=== PATIENT | female | born 1960 | race Caucasian/White ===

== ENCOUNTER 2016-06-20 16:28 | Emergency (ER) | payer OTHER ==
[~2016-06-20] VITALS: Wt 118.0 kg
[~2016-06-20 16:28] MED LIST: ACET500C5 PO; ALBU8.5H3 INH; AZIT250T94 PO; BENZ1LOZ52 MM; CEPH-443 PO; GUAI473L22 PO; IBUP-1542 PO; NAPR500T8 PO; OSLT75C PO
[2016-06-20] MEDS ORDERED: ACETAMINOPHEN 325 MG TAB PO ONE (18:00)
--- NOTE | 2016-06-20 18:19 | ERD ---
ER Documentation Chief Complaint Date/Time DATE: 06/20/16 TIME: 18:16 Chief Complaint HEADPAIN AND BACKPAIN FOR THE PAST FEW MONTHS. R EYE INTERMITTENT BLURRY HPI Patient is a 56-year-old female who presents to the ED with multiple complaints. She states that she has had headaches, neck pain and shoulder pain for the last 3-4 months. She states that she occasionally gets blurry vision. She denies dizziness or weakness. She denies trauma or triggering factor. She has not taken any medications for her symptoms. She also complains of left foot pain. She states that for the last 5 months she occasionally gets numbness and tingling on the left side of her foot. She currently does not have any symptoms in her feet. She denies any swelling, erythema or trauma. She is able to walk. Denies weakness. However she states that occasionally she gets these symptoms in her foot. Denies cough, chest pain or shortness of breath. Denies leg pain or swelling. ROS All systems reviewed and are negative except as per history of present illness. Medications Home Meds Active Scripts Acetaminophen/Aspirin/Caffeine* (Excedrin*) 1 Tab Tab, 1 TAB PO BID for 14 Days , TAB Prov:OJ JUNG PA-C 06/20/16 Gabapentin* (Gabapentin*) 100 Mg Capsule, 100 MG PO TID, #90 CAP Prov:OJ JUNG PA-C 06/20/16 Cephalexin* (Keflex*) 500 Mg Capsule, 500 MG PO QID for 5 Days, CAP Prov:NATO MUNOZ PA-C 10/19/15 Acetaminophen* (Tylophen*) 500 Mg Capsule, 1 CAP PO Q6H Y for PAIN AND OR ELEVATED TEMP, #20 CAP Prov:NATO MUNOZ PA-C 10/19/15 Guaifenesin-Codeine Phosphate* (Guaifenesin* AC Cough Syrup) 473 Ml Liquid, 10 ML PO QHS Y for COUGH, #120 ML Prov:COLE CALLAHAN PA-C 07/30/15 Albuterol Sulfate* (Proair HFA*) 8.5 Gm Hfa.aer.ad, 2 PUFF INH Q4, #1 INHALER Prov:COLE CALLAHAN PA-C 07/30/15 Benzocaine/Menthol* (Cepacol* Sore Throat Lozenges) 1 Each Lozenge, 1 EACH MM q2h Y for SORE THROAT, #30 LOZENGE Prov:COLE CALLAHAN DAVE 07/30/15 Acetaminophen* (Tylophen*) 500 Mg Capsule, 1 CAP PO Q6H Y for PAIN AND OR ELEVATED TEMP, #20 CAP Prov:LONDONCOLE ACOSTA 07/30/15 Ibuprofen* (Motrin*) 600 Mg Tab, 600 MG PO Q6, #30 TAB Prov:LONDONCOLE ACOSTA 07/30/15 Oseltamivir Phosphate* (Tamiflu*) 75 Mg Capsule, 75 MG PO BID for 5 Days, CAP Prov:LONDONCOLE ACOSTA 07/30/15 Ibuprofen* (Motrin*) 600 Mg Tab, 600 MG PO Q6, #30 TAB Prov:ETHEL JACOBS 05/17/15 Azithromycin* (Zithromax*) 250 Mg Tablet, 250 MG PO .IraPACK DIRECTED, #6 TAB TAKE 500 MG (2 TABS) THE FIRST DAY THEN 250 MG (1 TAB) DAYS 2-5 Prov:ETHEL JACOBS 05/17/15 Reported Medications Naproxen* (Naproxen EC*) 500 Mg Tablet.dr, 500 MG PO DAILY Y for PAIN, TAB 03/24/14 Allergies Allergies: Coded Allergies: No Known Allergy (Unverified , 06/20/16) PMhx/Soc History of Surgery: Yes (KNEE AND FOOT) Anesthesia Reaction: No Hx Respiratory Disorders: Yes (ASTHMA) Hx Miscellaneous Medical Probl: Yes (Hypertension) Hx Alcohol Use: No Hx Substance Use: No Hx Tobacco Use: No Smoking Status: Never smoker FmHx Family History: No coronary disease, No diabetes, No other Physical Exam Vitals Vital Signs Date Time Temp Pulse Resp B/P Pulse Ox O2 Delivery O2 Flow Rate FiO2 06/20/16 20:18 98.9 78 18 128/58 97 Room Air 06/20/16 16:54 98.4 76 20 133/60 9 Physical Exam GENERAL: Well-developed, well-nourished female. Appears in no acute distress. HEAD: Normocephalic, atraumatic. EYES: Pupils are equally reactive bilaterally. EOMs grossly intact. No conjunctival erythema. ENT: Moist mucous membranes. No uvula deviation. No kissing tonsils. No exudates. NECK: Supple. No lymphadenopathy or thyromegaly. No meningismus. negative kernig. negative brudinski. LUNG: Clear to auscultation bilaterally. No rhonchi, wheezing, rales or coarse breath sounds. HEART: Regular rate and rhythm. No murmurs, rubs or gallops. ABDOMEN: No scars, ecchymosis or rashes noted. Soft, nontender, and nondistended. Positive bowel sounds in all four quadrants. No rebound tenderness , no guarding. (-) McBurneys point tenderness. No CVA tenderness. BACK: No midline tenderness. Extremities: Equal pulses bilaterally. No peripheral clubbing, cyanosis or edema. No unilateral leg swelling. no tenderness to malleoli. pulses intact. no swelling or erythema or signs of infection. NEUROLOGIC: Alert and oriented. Moving all four extremities. 5/5 strength in all extremities. Normal speech. Steady gait. Cranial nerves II through XII intact. SKIN: Normal color. Warm and dry. No rashes or lesions. Capillary refill < 2 seconds Results 24 hrs Current Medications Medications (Trade) Dose Ordered Sig/Cherri Route PRN Reason Start Time Stop Time Status Last Admin Dose Admin Acetaminophen (Tylenol Tab) 650 mg ONCE ONCE PO 06/20/16 18:00 06/20/16 18:01 DC 06/20/16 17:44 Ketorolac Tromethamine (Toradol) 30 mg ONCE STAT IM 06/20/16 20:04 06/20/16 20:05 DC 06/20/16 20:18 Procedures/MDM ER COURSE: I kept the patient and/or family informed of laboratory and diagnostic imaging results throughout the emergency room course. EKG, MONITORS, & DIAGNOSTIC IMAGING: [place] [address] Radiology Main Line: [phone] DIAGNOSTIC IMAGING REPORT Patient: BHUMIKA PACHECO : 1960 Age: 56 Sex: F MR #: [id number] DOS: 06/20/16 3700 Ordering MD: OJ JUNG PA-C Location: [facility] Room/Bed: PROCEDURE: CT Brain without. CLINICAL INDICATION: Headache. TECHNIQUE: A CT of the brain was performed on multidetector high-resolution CT scanner utilizing axial sections from the skull base through the vertex without contrast. The scan was reviewed in soft tissue brain and high frequency resolution bone algorithm windows. Images were reviewed on a high- resolution PACS workstation. One or more the following does reduction techniques were utilized: Automated exposure control, adjustment of the mA/ or kV according to patient's size, or use of iterative reconstruction technique. The exam CTDI = 44.11 mGy and the DLP = 630.2 mGy-cm. COMPARISON: None available. FINDINGS: The ventricles and sulci are appropriate. There is no intracranial hemorrhage, mass effect or midline shift. No abnormal intra-axial or extra-axial fluid collections are seen. The hahn/white matter differentiation is preserved. No acute skull abnormality is noted. The visualized paranasal sinuses are essentially clear. IMPRESSION: 1. No acute intracranial hemorrhage, transcortical infarction or mass effect. RPTAT: HFN .Alen Miguel MD MD Date Time Electronically viewed and signed by .Alen Miguel MD, MD on 06/20/2016 19: 08 .N/ CC: OJ JUNG PA-C MEDICATIONS: Tylenol. Patient tolerated medication well with no adverse reaction. Toradol. Patient tolerated medication well with no adverse reaction. Patient stated improvement in symptoms. MEDICAL DECISION MAKING: This is a 56-year-old female who presents with multiple complaints. Vital signs were reviewed. Patient is afebrile. Patient is not hypoxic. Patient is not toxic or ill-appearing. Patient has headache of uncertain etiology. Low suspicion for intracranial hemorrhage, meningitis, intracranial mass, concussion , temporal arteritis, stroke, elevated intracranial pressure, seizure. Her back pain is likely a muscle strain versus arthritis. Since this has been going on for a while I did not think an x-ray was necessary at this time. Patient did not want an x-ray of her back. Low suspicion for cauda equine syndrome, spinal epidural hematoma, spinal epidural abscess, osteomyelitis, fracture, aortic dissection, AAA, pyelonephritis, nephrolithiasis, septic stone , obstructed stone. Patient's left foot pain is of uncertain etiology. However on examination her foot was within normal limits. I do not think an x- ray was necessary at this time as patient did not want an x-ray there. Low suspicion for dislocation, fracture, septic joint, compartment syndrome, osteomyelitis, avascular necrosis, DVT, Achilles tendon rupture, cellulitis. At this time, unable to rule out any tendon and ligament injuries. There is no swelling or erythema on her calf. Negative Homans sign. No pain above or below her knee and I did not think an ultrasound or further workup for DVT was necessary. DISCHARGE: At this time, patient is stable for discharge and outpatient management with no new complaints during the ER course. Patient was sent home with gabapentin and Excedrin. Patient will be discharged home with instructions to recheck for new or worsening symptoms such as fever, nausea, weakness, LOC and to follow up with primary care in the next 1-2 days. Patient was advised to return to the ER for any new or worsening symptoms. Plan was discussed and patient and/or family understands and agrees. Home instructions were given. Departure Diagnosis: Primary Impression: Back pain Back pain location: low back pain Chronicity: chronic Back pain laterality : bilateral Sciatica presence: without sciatica Qualified Code: M54.5 - Chronic bilateral low back pain without sciatica Additional Impression: Headache Headache type: unspecified Headache chronicity pattern: chronic headache Intractability: intractable Qualified Code: R51 - Chronic intractable headache, unspecified headache type Condition: Stable OJ JUNG PA-C Jun 20, 2016 18:18
[2016-06-20] MEDS ORDERED: GABA100C14 PO (18:20)
[2016-06-20] MEDS ORDERED: EXCED PO (18:22)
--- NOTE | 2016-06-20 19:08 | RADRPT ---
PROCEDURE: CT Brain without. CLINICAL INDICATION: Headache. TECHNIQUE: A CT of the brain was performed on multidetector high-resolution CT scanner utilizing a xial sections from the skull base through the vertex without contrast. The scan was reviewed in sof t tissue brain and high frequency resolution bone algorithm windows. Images were reviewed on a high -resolution PACS workstation. One or more the following does reduction techniques were utilized: Aut omated exposure control, adjustment of the mA/ or kV according to patient's size, or use of iterativ e reconstruction technique. The exam CTDI = 44.11 mGy and the DLP = 630.2 mGy-cm. COMPARISON: None available. FINDINGS: The ventricles and sulci are appropriate. There is no intracranial hemorrhage, mass effect or midlin e shift. No abnormal intra-axial or extra-axial fluid collections are seen. The hahn/white matter d ifferentiation is preserved. No acute skull abnormality is noted. The visualized paranasal sinuses a re essentially clear. IMPRESSION: 1. No acute intracranial hemorrhage, transcortical infarction or mass effect. RPTAT: HFN .Alen Miguel MD, MD Date Time Electronically viewed and signed by .Alen Miguel MD, MD on 06/20/2016 19:08 .N/
[2016-06-20] MEDS ORDERED: KETOROLAC 30 MG INJ IM STA (20:04)
[2016-06-20 20:18] VITALS: BP 128/58; PULSE 78; RESP 18; TEMP 98.9
== END 2016-06-20 20:20 | disposition home or self-care (01) ==
LOC: FTE 16:28
DX: M54.5 Low back pain (principal); I10 Essential (primary) hypertension; J45.909 Unspecified asthma, uncomplicated; R20.0 Anesthesia of skin
CPT/HCPCS: 70450; 93005; 96372; J1885; Z7502; Z7610

== ENCOUNTER 2016-11-19 06:50 | Emergency (ER) | payer OTHER ==
[~2016-11-19] VITALS: Wt 112.5 kg
[~2016-11-19 06:50] MED LIST changes: +EXCED PO; +GABA100C14 PO
[2016-11-19] MEDS ORDERED: IBUP-1542 PO (07:27)
[2016-11-19] MEDS ORDERED: IBUPROFEN 800 MG TAB PO ONE (07:30)
[2016-11-19] MEDS ORDERED: KETOROLAC 30 MG INJ IM STA (07:48)
--- NOTE | 2016-11-19 08:22 | ERD ---
ER Documentation Chief Complaint Date/Time DATE: 11/19/16 TIME: 08:18 Chief Complaint COUGH, THROAT PAIN, BURNING FEELING ON BILAT FEET HPI Patient is a 48-year-old female with no medical problems who presents with multiple complaints. She said that she has had burning the left leg and foot for the past 1 year. She has no trouble with walking. She denies fevers. She does have a cough which was nonproductive. She tried Tylenol for this. The cough started 1 week ago. She has back pain as well in the lower back bilaterally. Upon review of old medical records this is the patient's seventh visit to the ER since 2013. Her primary doctor is Dr. Alex. ROS All systems reviewed and are negative except as per history of present illness. Medications Home Meds Active Scripts Ibuprofen* (Motrin*) 600 Mg Tab, 600 MG PO Q8, #30 TAB Prov:AMEE CORRAL MD 11/19/16 Acetaminophen/Aspirin/Caffeine* (Excedrin*) 1 Tab Tab, 1 TAB PO BID for 14 Days , TAB Prov:OJ JUNG PA-C 06/20/16 Gabapentin* (Gabapentin*) 100 Mg Capsule, 100 MG PO TID, #90 CAP Prov:OJ JUNG PA-C 06/20/16 Cephalexin* (Keflex*) 500 Mg Capsule, 500 MG PO QID for 5 Days, CAP Prov:NATO MUNOZ PA-C 10/19/15 Acetaminophen* (Tylophen*) 500 Mg Capsule, 1 CAP PO Q6H Y for PAIN AND OR ELEVATED TEMP, #20 CAP Prov:NATO MUNOZ PA-C 10/19/15 Guaifenesin-Codeine Phosphate* (Guaifenesin* AC Cough Syrup) 473 Ml Liquid, 10 ML PO QHS Y for COUGH, #120 ML Prov:COLE CALLAHAN PA-C 07/30/15 Albuterol Sulfate* (Proair HFA*) 8.5 Gm Hfa.aer.ad, 2 PUFF INH Q4, #1 INHALER Prov:COLE CALLAHAN PA-C 07/30/15 Benzocaine/Menthol* (Cepacol* Sore Throat Lozenges) 1 Each Lozenge, 1 EACH MM q2h Y for SORE THROAT, #30 LOZENGE Prov:COLE CALLAHAN DAVE 07/30/15 Acetaminophen* (Tylophen*) 500 Mg Capsule, 1 CAP PO Q6H Y for PAIN AND OR ELEVATED TEMP, #20 CAP Prov:COLE CALLAHAN DAVE 16 Ibuprofen* (Motrin*) 600 Mg Tab, 600 MG PO Q6, #30 TAB Prov:COLE CALLAHAN DAVE 16 Oseltamivir Phosphate* (Tamiflu*) 75 Mg Capsule, 75 MG PO BID for 5 Days, CAP Prov:COLE CALLAHAN DAVE 07/30/15 Ibuprofen* (Motrin*) 600 Mg Tab, 600 MG PO Q6, #30 TAB Prov:ETHEL JACOBS 05/17/15 Azithromycin* (Zithromax*) 250 Mg Tablet, 250 MG PO .ZPACK DIRECTED, #6 TAB TAKE 500 MG (2 TABS) THE FIRST DAY THEN 250 MG (1 TAB) DAYS 2-5 Prov:ETHEL JACOBS 05/17/15 Reported Medications Naproxen* (Naproxen EC*) 500 Mg Tablet.dr, 500 MG PO DAILY Y for PAIN, TAB 03/24/14 Allergies Allergies: Coded Allergies: No Known Allergy (Unverified , 06/20/16) PMhx/Soc History of Surgery: Yes (KNEE AND FOOT) Anesthesia Reaction: No Hx Respiratory Disorders: Yes (ASTHMA) Hx Miscellaneous Medical Probl: Yes (Hypertension) Hx Alcohol Use: No Hx Substance Use: No Hx Tobacco Use: No Smoking Status: Never smoker FmHx Family History: diabetes Physical Exam Vitals Vital Signs Date Time Temp Pulse Resp B/P Pulse Ox O2 Delivery O2 Flow Rate FiO2 11/19/16 06:54 97.4 80 17 156/76 98 Physical Exam Const: No acute distress Head: Atraumatic Eyes: Normal Conjunctiva ENT: Normal External Ears, Nose and Mouth. Neck: Full range of motion..~ No meningismus. Resp: Clear to auscultation bilaterally Cardio: Regular rate and rhythm, no murmurs Abd: Soft, non tender, non distended. Normal bowel sounds Skin: No petechiae or rashes Back: No midline or flank tenderness Ext: No cyanosis, or edema Neur: Awake and alert Psych: Normal Mood and Affect Results 24 hrs Current Medications Medications (Trade) Dose Ordered Sig/Cherri Route PRN Reason Start Time Stop Time Status Last Admin Dose Admin Ibuprofen (Motrin) 800 mg ONCE ONCE PO 11/19/16 07:30 11/19/16 07:31 DC Ketorolac Tromethamine (Toradol) 30 mg ONCE STAT IM 11/19/16 07:48 11/19/16 07:49 DC 11/19/16 07:55 Procedures/MDM Patient is a 56-year-old female who presents with leg pain and foot pain as well as back pain and cough. There is no sign of pneumonia or pneumothorax. I doubt pulmonary embolism or aortic dissection. Given her back pain I believe this is more likely musculoskeletal and I do not think the patient has an epidural abscess, epidural hematoma, or cauda equina syndrome. The patient will be discharged after she is given ibuprofen for pain and inflammation reduction. The patient can follow-up with her primary doctor within 24-48 hours and can return if symptoms worsen. The patient will be given a prescription for ibuprofen. She said that she wanted a shot in the emergency department so Toradol was given prior to discharge. I believe the cough is likely an upper respiratory infection from a viral source and I do not believe the patient requires antibiotics at this time. Departure Diagnosis: Primary Impression: Upper respiratory infection URI type: unspecified URI Qualified Code: J06.9 - Upper respiratory tract infection, unspecified type Additional Impression: Back pain Back pain location: low back pain Chronicity: acute Back pain laterality: left Sciatica presence: with sciatica Sciatica laterality: sciatica of left side Qualified Code: M54.42 - Acute left-sided low back pain with left-sided sciatica Condition: Fair Patient Instructions: Back Pain (Acute Or Chronic), Uri, Viral, No Abx (Adult) Referrals: [facility] (PCP) Additional Instructions: Llame al doctor MAANA y cesar gerber DAYNE PARA DENTRO DE 1-2 MURILLO.Dgale a la secretaria que nosotros le instruimos hacer esta dayne.Avise o llame si solano condicin se empeora antes de la dayne. Regresa aqui si peor o no mejor. AMEE CORRAL MD Nov 19, 2016 08:22
== END 2016-11-19 07:59 | disposition home or self-care (01) ==
LOC: FTE 06:50
DX: J06.9 Acute upper respiratory infection, unspecified (principal); M54.42 Lumbago with sciatica, left side; J45.909 Unspecified asthma, uncomplicated; I10 Essential (primary) hypertension
CPT/HCPCS: 96372; J1885

== ENCOUNTER 2017-04-07 18:58 | Emergency (ER) | payer OTHER ==
[~2017-04-07] VITALS: Ht 160 cm; Wt 111.3 kg
[2017-04-07 19:21] VITALS: Ht 160 cm; Wt 111.3 kg
[2017-04-07] MEDS ORDERED: KETOROLAC 30 MG INJ IM STA (22:54)
[2017-04-07] MEDS ORDERED: HYDROCODONE/APAP (5/325) TAB PO ONE (23:00)
--- NOTE | 2017-04-07 23:22 | ERD ---
ER Documentation Chief Complaint Chief Complaint L shoulder pain for a week HPI 57-year-old presents here to emergency department for complaints of left shoulder pain after lifting a couch 1 week ago. Patient describes the pain as throbbing pain, 6/10 scale, not better or worse with anything. Patient is complaining of shooting pain from the left shoulder to the left arm. Patient denies any numbness or tingling. Patient denies any deformity. ROS All systems reviewed and are negative except as per history of present illness. Medications Home Meds Active Scripts Ibuprofen* (Motrin*) 600 Mg Tab, 600 MG PO Q8, #30 TAB Prov:AMEE CORRAL MD 11/19/16 Acetaminophen/Aspirin/Caffeine* (Excedrin*) 1 Tab Tab, 1 TAB PO BID for 14 Days , TAB Prov:OJ JUGN PA-C 06/20/16 Gabapentin* (Gabapentin*) 100 Mg Capsule, 100 MG PO TID, #90 CAP Prov:OJ JUNG PA-C 06/20/16 Cephalexin* (Keflex*) 500 Mg Capsule, 500 MG PO QID for 5 Days, CAP Prov:NATO MUNOZ PA-C 10/19/15 Acetaminophen* (Tylophen*) 500 Mg Capsule, 1 CAP PO Q6H Y for PAIN AND OR ELEVATED TEMP, #20 CAP Prov:NATO MUNOZ PA-C 10/19/15 Guaifenesin-Codeine Phosphate* (Guaifenesin* AC Cough Syrup) 473 Ml Liquid, 10 ML PO QHS Y for COUGH, #120 ML Prov:COLE CALLAHAN PA-C 07/30/15 Albuterol Sulfate* (Proair HFA*) 8.5 Gm Hfa.aer.ad, 2 PUFF INH Q4, #1 INHALER Prov:COLE CALLAHAN PA-C 07/30/15 Benzocaine/Menthol* (Cepacol* Sore Throat Lozenges) 1 Each Lozenge, 1 EACH MM q2h Y for SORE THROAT, #30 LOZENGE Prov:COLE CALLAHAN PA-C 07/30/15 Acetaminophen* (Tylophen*) 500 Mg Capsule, 1 CAP PO Q6H Y for PAIN AND OR ELEVATED TEMP, #20 CAP Prov:COLE CALLAHAN PA-C 07/30/15 Ibuprofen* (Motrin*) 600 Mg Tab, 600 MG PO Q6, #30 TAB Prov:COLE CALLAHAN ANGELOAlan 07/30/15 Oseltamivir Phosphate* (Tamiflu*) 75 Mg Capsule, 75 MG PO BID for 5 Days, CAP Prov:COLE CALLAHAN DAVE 07/30/15 Ibuprofen* (Motrin*) 600 Mg Tab, 600 MG PO Q6, #30 TAB Prov:ETHEL JACOBS Joel 05/17/15 Azithromycin* (Zithromax*) 250 Mg Tablet, 250 MG PO .ZPACK DIRECTED, #6 TAB TAKE 500 MG (2 TABS) THE FIRST DAY THEN 250 MG (1 TAB) DAYS 2-5 Prov:REYNALDOETHEL Maldonado 05/17/15 Reported Medications Naproxen* (Naproxen EC*) 500 Mg Tablet.dr, 500 MG PO DAILY Y for PAIN, TAB 03/24/14 Allergies Allergies: Coded Allergies: No Known Allergy (Unverified , 04/07/17) PMhx/Soc Medical and Surgical Hx: pt denies Medical Hx History of Surgery: Yes (Lt KNEE AND JOSE FOOT) Anesthesia Reaction: No Hx Respiratory Disorders: Yes (ASTHMA) Hx Miscellaneous Medical Probl: Yes (Hypertension) Hx Alcohol Use: No Hx Substance Use: No Hx Tobacco Use: No FmHx Family History: No coronary disease, No diabetes, No other Physical Exam Vitals Vital Signs Date Time Temp Pulse Resp B/P Pulse Ox O2 Delivery O2 Flow Rate FiO2 04/07/17 19:21 97.8 72 18 172/93 96 Physical Exam GENERAL: The patient is well developed and appropriate for usual state of health, in no apparent distress. CHEST: Clear to auscultation bilaterally. There are no rales, wheezes or rhonchi. HEART: Regular rate and rhythm. No murmurs, clicks, rubs or gallops. No S3 or S4. ABDOMEN: Soft, nontender and nondistended. Good bowel sounds. No rebound or guarding. No gross peritonitis. No gross organomegaly or masses. No Steward sign or McBurney point tenderness. BACK: No midline or flank tenderness. EXTREMITIES: Left shoulder noted limitation movement because of pain, no swelling noted, no deformity noted. Equal pulses bilaterally. There is no peripheral clubbing, cyanosis or edema. No focal swelling or erythema. Full range of motion. Grossly neurovascularly intact. NEURO: Alert and oriented. Cranial nerves 2-12 intact. Motor strength in all 4 extremities with 5/5 strength. Sensation grossly intact. Normal speech and gait. SKIN: There is no apparent rash or petechia. The skin is warm and dry. HEMATOLOGIC AND LYMPHATIC: There is no evidence of excessive bruising or lymphedema. No gross cervical, axillary, or inguinal lymphadenopathy. Results 24 hrs Current Medications Medications (Trade) Dose Ordered Sig/Cherri Route PRN Reason Start Time Stop Time Status Last Admin Dose Admin Acetaminophen/ Hydrocodone Bitart ([place] (5/325)) 1 tab ONCE ONCE PO 04/07/17 23:00 04/07/17 23:01 DC 04/07/17 23:00 Ketorolac Tromethamine (Toradol) 30 mg ONCE STAT IM 04/07/17 22:54 04/07/17 22:55 DC 04/07/17 23:00 Patient was given medication for pain here in emergency department, after treatment, patient verbalized feeling much better. Patient's pain is improved. PROCEDURE: LEFT SHOULDER CLINICAL INDICATION: 57-year-old female with left shoulder pain. TECHNIQUE: Three views of the left shoulder were obtained. The images reviewed on a PACS workstation. COMPARISON: None. FINDINGS: No evidence of fracture or dislocation is seen. The glenohumeral and acromioclavicular joint spaces appear preserved. Limited views of the clavicle and thorax are unremarkable. IMPRESSION: Unremarkable left shoulder radiographs. .Leandro Avila MD, MD Date Time Electronically viewed and signed by .Leandro Avila MD, MD on 04/08/2017 00:36 .M/ CC: RITA SEAMAN NUTRITIONALIST Procedures/MDM Medical Decision Making: Patient's pain is most likely consistent with a left shoulder contusion or a sprain. There is no suspicion for neurovascular compromise. Patient has intact sensation and circulation of the affected extremity. There is low suspicion for septic arthritis. Patient does not have any fever. Radiology exams of the affected area does not show any fracture or dislocation. Disposition: Home. Patient is given prescription for ibuprofen for pain, [place]. Patient was advised to elevate the affected area and apply ice on affected area. Patient was advised that if symptoms are worse, numbness, tingling, high fever, unable to move joint, worsening symptoms, to return to emergency department immediately. Otherwise, patient is advised to follow up with the primary care doctor in 5-7 days for reevaluation of symptoms. Disclaimer: Inadvertent spelling and grammatical errors are likely due to EHR/ dictation software use and do not reflect on the overall quality of patient care. Also, please note that the electronic time recorded on this note does not necessarily reflect the actual time of the patient encounter. Departure Diagnosis: Primary Impression: Left shoulder pain Chronicity: acute Qualified Code: M25.512 - Acute pain of left shoulder Condition: Stable Patient Instructions: Shoulder Pain (Uncertain Cause) Additional Instructions: Patient is given prescription for ibuprofen for pain, [place]. Patient was advised to elevate the affected area and apply ice on affected area. Patient was advised that if symptoms are worse, numbness, tingling, high fever, unable to move joint, worsening symptoms, to return to emergency department immediately. Otherwise, patient is advised to follow up with the primary care doctor in 5-7 days for reevaluation of symptoms. RITA SEAMAN NP Apr 07, 2017 23:16
--- NOTE | 2017-04-08 00:36 | RADRPT ---
PROCEDURE: LEFT SHOULDER CLINICAL INDICATION: 57-year-old female with left shoulder pain. TECHNIQUE: Three views of the left shoulder were obtained. The images reviewed on a PACS workstati on. COMPARISON: None. FINDINGS: No evidence of fracture or dislocation is seen. The glenohumeral and acromioclavicular joint spaces appear preserved. Limited views of the clavicle and thorax are unremarkable. IMPRESSION: Unremarkable left shoulder radiographs. .Leandro Avila MD, MD Date Time Electronically viewed and signed by .Leandro Avila MD, MD on 04/08/2017 00:36 .M/
[2017-04-08] MEDS ORDERED: IBUP-1542 PO (01:09)
[2017-04-08] MEDS ORDERED: HYDR-906 PO (01:09)
== END 2017-04-08 01:19 | disposition home or self-care (01) ==
LOC: FTE 18:58
DX: M25.512 Pain in left shoulder (principal); I10 Essential (primary) hypertension; J45.909 Unspecified asthma, uncomplicated
CPT/HCPCS: 73030; 96372; J1885; Z7502; Z7610